=== PATIENT | male | born 1980 | race Caucasian/White ===

== ENCOUNTER 2017-02-18 17:47 | Emergency (ER) | payer SELFPAY ==
[~2017-02-18] VITALS: Ht 175.3 cm; Wt 78.0 kg
[2017-02-18 17:53] VITALS: Ht 175.3 cm; Wt 78.0 kg
== END 2017-02-18 21:25 | disposition left against medical advice (07) ==
LOC: FTE 17:47
DX: Z53.21 Procedure and treatment not carried out due to patient leaving prior to being seen by health care provider (principal)

== ENCOUNTER 2017-09-23 17:06 | Emergency (ER) | END 2017-09-23 19:55 | disposition home or self-care (01) ==